=== PATIENT | male | born 1980 | race Caucasian/White ===

== ENCOUNTER → 2020-12-13 09:56 | Outpatient (CLI) | payer OTHER, SELFPAY ==
--- NOTE | 2020-12-13 10:00 | CT_ITS ---
PROCEDURE: CT ABDOMEN PELVIS WO/W CON CLINICAL INDICATION: bilateral testicular pain BILAT TESTICULAR PAIN X 2-3 MONTHS, INCREASED IN THE LAST 2 WEEKS. COMPARISON: No exams were available for comparison TECHNIQUE: IV Contrast: 75ML Isovue 370 Oral Contrast None Axial images obtained with sagittal and coronal reformats. All CT scans at the facility use one or more dose reduction, viz: automated exposure control, ma/kV adjustment per patient size (including targeted exams where dose is matched to indication, i.e. head), or iterative reconstruction technique. FINDINGS: LOWER THORAX: No acute finding ABDOMEN & PELVIS: The liver appears somewhat enlarged measuring 26 cm transverse. There is a vague area of decreased attenuation within the left hepatic lobe posteriorly at the portal region measuring 18 mm. This may be due to focal fatty infiltration. The liver is otherwise unremarkable. The spleen, adrenal glands, and pancreas have an unremarkable appearance. The gastric wall appears slightly thickened at the antral area and may be due to nondistention. No renal or ureteral calculi. No hydronephrosis. There are scattered mildly prominent peritoneal lymph nodes in the epigastric region and portal area as well as the mesenteries in retroperitoneum. Unremarkable appendix. No intestinal obstruction or free air. There is mild thickening of the colon in the rectosigmoid region. No intestinal obstruction or free air is evident. No acute bony findings. No abnormal fluid collections. The prostate is mildly enlarged at 4.3 cm. There is some minimal nonspecific thickening of the urinary bladder wall. IMPRESSION: 1. There are scattered mildly prominent lymph nodes within the portal area epigastric region mesenteries and retroperitoneum. These are nonspecific and may be reactive in nature. Consider follow-up to confirm stability as other processes such as metastatic disease or lymphoma would be included in the differential diagnosis. 2. 1.8 cm hypodensity in the left hepatic lobe which may be due to focal fatty infiltration. Recommend follow-up to confirm stability. 3. Nonspecific thickening of the rectosigmoid portion of the colon which may be due to nondistention versus colitis. There is also mild thickening of the antrum of the stomach which could also be due to nondistention or gastritis. 4. Mildly enlarged prostate. Minimal nonspecific thickening of the urinary bladder wall. Dictated by: Raffi Billings MD 12/14/2020 07:21 Raffi Billings MD in [facility] 12/14/2020 07:21
== END ==
PROVIDERS: Visit Provider Urology
DX: N50.811 Right testicular pain (principal); N50.812 Left testicular pain
CPT/HCPCS: 74178; Q9967